=== PATIENT | male | born 1980 | race Two or more races ===

== ENCOUNTER 2017-10-16 19:03 | Emergency (ER) | payer BC, OTHER ==
[~2017-10-16] VITALS: Ht 177.8 cm; Wt 86.2 kg
[2017-10-16 19:18] VITALS: BP 125/79
[2017-10-16] MEDS ORDERED: ACETAMINOPHEN 325 MG TABLET PO ONE (20:00)
[2017-10-16] MEDS ORDERED: IBUPROFEN 600 MG TABLET PO ONE ×2 (20:00→20:03)
[2017-10-16] MEDS ORDERED: ACETAMINOPHEN ES 500 MG TABLET ONE (20:03)
== END 2017-10-16 20:07 | disposition home or self-care (01) ==
LOC: ER 19:05
DX: B34.9 Viral infection, unspecified (principal)
CPT/HCPCS: 99283; A4606; Z7610